=== PATIENT | female | born 1970 | race Asian ===

== ENCOUNTER → 2017-05-13 | Outpatient (CLI) | payer OTHER | LOC: CIMAGING 08:05 | PROVIDERS: ATTEND Family Medicine | DX: Z12.31 Encounter for screening mammogram for malignant neoplasm of breast (principal) | CPT/HCPCS: G0202 ==

== ENCOUNTER 2017-10-25 23:09 | Emergency (ER) | payer OTHER ==
[2017-10-25 23:28] VITALS: BP 130/84
--- NOTE | 2017-10-25 23:28 | EDPHY ---
H & P Time Seen by Provider: 10/25/17 23:26 HPI/ROS: CHIEF COMPLAINT: Right posterior shoulder discomfort HISTORY OF PRESENT ILLNESS: Right posterior shoulder discomfort beginning approximately 11:00 a.m. Initially seen to be at the posterior aspect of the right upper arm, however in a 30 min or so it moved up to the vicinity where it is now, overlying the posterior axillary fold. She had been up for most the morning doing normal activities such as bathroom care, breakfast. At the time of the onset she was sitting propped up in bed, holding a crossword puzzle in her left hand performing the crossword puzzle in her dominant right hand - that is when she noted discomfort. It was bothersome through the most the afternoon and into the evening when he became notably worse around 8:00 p.m. At which time she took Advil 400 mg. It really did not help much. Thus she came in for evaluation. No cough or fever or chills or nausea vomiting or diaphoresis. P: Worse with sitting up or standing, located in the vicinity of the right posterior axillary fold Q: Achiness R: No radiation S: Moderate, not better with Ativan. T: Persistent since 6:11 a.m., worse since 8:00 p.m. No risk factors for pulmonary embolus or DVT. Perc Score 0 [place] Prescription Drug Monitoring Program checked: not in there REVIEW OF SYSTEMS: Constitutional: No fever, no chills. Eyes: No discharge No diplopia ENT: No sore throat. Cardiovascular: No chest pain, no palpitations. Respiratory: No cough, shortness of breath, or wheezing. Gastrointestinal: No nausea vomiting or diarrhea. No abdominal pain. Genitourinary: No hematuria or frequency. Musculoskeletal: No back pain. Skin: No rashes. No diaphoresis or nausea vomiting Neurological: No headache. 10 point ROS otherwise negative Source: Patient - Personal History LMP (Females 10-55): Now Tetanus Vaccine Date: WITHIN 10 YRS - Medical/Surgical History Hx Asthma: Yes Hx Chronic Respiratory Disease: No Hx Diabetes: No Hx Cardiac Disease: No Hx Renal Disease: No Hx Cirrhosis: No Hx Alcoholism: No Hx HIV/AIDS: No Hx Splenectomy or Spleen Trauma: No Other PMH: HTN, HIGH CHOLESTEROL,WILLIS PARKINSON/SEIZURES. RESPIRATORY FAILURE FROM H1N1/PNEUMONIA- HOSPITALIZED X 3 MONTHS. Surgical- None - Family History Significant Family History: No pertinent family hx - Social History Smoking Status: Never smoked Alcohol Use: None Drug Use: None - Physical Exam Exam: General: WD, WN, nontoxic, without diaphoresis. No respiratory distress. Denies pleuritic pain, even with deep breath taken as directed. Baseline oxygen is place as usual. HEENT: No odor of alcohol Neck: No Torticollis. Trachea is in ML. No rashes. No muscle spasm. No bony tenderness. ROM: Normal Normal sensation to the upper extremities Lungs: Clear, no dullness. No rales rhonchi wheezes. Shoulder: negative empty can test. No crepitus with ROM. Pain reproduced by me with resistance testing to internal rotation, less so with Triceps and Biceps. Passive extension and external rotation of the shoulder reproduces the pain. Back: Tender overlying the length of the right shoulder, in the vicinity of the posterior axillary fold along the course of the ltissimus dorsi, reproducing the pain. No rib tenderness. Skin: Intact without rash. Capillary refill intact. Constitutional: Initial Vital Signs Temperature (C) 37.1 C 10/25/17 23:24 Heart Rate 75 10/25/17 23:24 Respiratory Rate 18 10/25/17 23:24 Blood Pressure 130/84 H 10/25/17 23:24 O2 Sat (%) 95 10/25/17 23:24 O2 Delivery Mode Room Air Allergies/Adverse Reactions: peanut Allergy (Intermediate, Verified 10/25/17 23:23) Vomiting levofloxacin Allergy (Verified 10/25/17 23:23) sulfamethoxazole [From Bactrim] Allergy (Verified 10/25/17 23:23) trimethoprim [From Bactrim] Allergy (Verified 10/25/17 23:23) Home Medications: Medication Instructions Recorded PARoxetine HCL [Paxil 20mg (RX)] 20 mg PO DAILY 07/18/13 Metoprolol Tartrate [Lopressor] 50 mg PO BID 08/13/13 Gabapentin 10/25/17 Keppra 10/25/17 LORazepam [Ativan] 1 tab PO Q8 PRN #10 tablet 10/25/17 Lamictal 10/25/17 Medical Decision Making ED Course/Re-evaluation: Diagnostic considerations include, but are not limited to, the following: Shoulder strain, rotator cuff injury, pneumothorax, pleurisy, pulmonary embolus , shingles, trapezius strain. - Data Points Medications Given: Discontinued Medications Lorazepam (Ativan 1 Mg Prepack#4) 0.5 btl CHRIS GOMEZ ONE Stop: 10/25/17 23:55 Last Admin: 10/26/17 00:02 Dose: 1 btl Departure - Departure Disposition: Home, Routine, Self-Care Clinical Impression: Strain of muscle at thorax level Condition: Serious Instructions: Lorazepam (By mouth), Thoracic Back Strain (ED) Additional Instructions: Tylenol and Advil works well together in combination: 1300 mg Extended Release Tylenol and 600 mg Advil every 8 hours. 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
[2017-10-25] MEDS ORDERED: LORAZEPAM 1 MG PREPACK#4 BTL TAKEHOME ONE (23:54)
== END 2017-10-26 00:14 | disposition home or self-care (01) ==
LOC: CED 23:09
DX: S29.012A Strain of muscle and tendon of back wall of thorax, initial encounter (principal); I10 Essential (primary) hypertension; J45.909 Unspecified asthma, uncomplicated; Z91.010 Allergy to peanuts; X58.XXXA Exposure to other specified factors, initial encounter

== ENCOUNTER → 2017-10-29 | Outpatient (CLI) | payer OTHER | LOC: BMCIMAGING 14:39 | PROVIDERS: ATTEND Internal Medicine | DX: M41.84 Other forms of scoliosis, thoracic region (principal); M54.12 Radiculopathy, cervical region; R07.9 Chest pain, unspecified ==

== ENCOUNTER → 2017-11-19 | Outpatient (CLI) | payer OTHER | LOC: FIMAGING 07:39 | PROVIDERS: ATTEND Physician Assistant Medical | DX: M50.321 Other cervical disc degeneration at C4-C5 level (principal); M50.322 Other cervical disc degeneration at C5-C6 level; M50.323 Other cervical disc degeneration at C6-C7 level; M50.33 Other cervical disc degeneration, cervicothoracic region; M48.02 Spinal stenosis, cervical region; M99.71 Connective tissue and disc stenosis of intervertebral foramina of cervical region ==

== ENCOUNTER → 2018-08-02 | Outpatient (CLI) | payer OTHER | LOC: CIMAGING 07:55 | PROVIDERS: ATTEND Internal Medicine | DX: Z12.31 Encounter for screening mammogram for malignant neoplasm of breast (principal); Z80.3 Family history of malignant neoplasm of breast ==

== ENCOUNTER → 2018-08-15 | Outpatient (CLI) | payer OTHER | LOC: FIMAGING 08:35 | PROVIDERS: ATTEND Neurological Surgery | DX: M50.321 Other cervical disc degeneration at C4-C5 level (principal); M53.82 Other specified dorsopathies, cervical region ==

== ENCOUNTER 2018-08-26 08:15 | Inpatient (IN) | payer OTHER ==
[2018-08-26] MEDS ORDERED: SURGIFLO MATRIX KIT WITH THROMBIN 8 ML TP ONE (09:07)
[2018-08-26] MEDS ORDERED: THROMBIN (BOVINE) 20,000 UNIT VIAL TP ONE (09:07)
[2018-08-26] MEDS ORDERED: CHLORHEXIDINE GLUC HIBICLENS 118 ML BTL TP ONE ×2 (09:08)
[2018-08-26] MEDS ORDERED: BACITRACIN 50,000 UNITS/10 ML SYR IRR ONE (09:08)
[2018-08-26] MEDS ORDERED: PROPOFOL/EMULSION 500 MG/50 ML BOTTLE IV ONE (09:32)
[2018-08-26] MEDS ORDERED: ceFAZolin 2 GM/DEXTROSE 100 ML IV ONE (09:38)
[2018-08-26] MEDS ORDERED: LR 1,000 ML IV ONE (09:38)
[2018-08-26] MEDS ORDERED: ACETAMINOPHEN 500 MG TAB PO ONE (09:38)
[2018-08-26] MEDS ORDERED: GABAPENTIN 300 MG CAP PO ONE (09:38)
--- NOTE | 2018-08-26 09:46 | PDHPUP ---
History & Physical Update H&P update statement: This history and physical update is based on an assessment of the patient which was completed after admission or registration (within 24 hours), but prior to the surgery/procedure. H&P update: H&P reviewed & patient examined, no change in patient's condition since H&P completed (Consents signed and site marked. All questions answered.)
[2018-08-26] MEDS ORDERED: fentaNYL 100 MCG/2 ML INJ ONE ×3 (10:12→14:12)
[2018-08-26] MEDS ORDERED: MIDAZOLAM 2 MG/2 ML VIAL ONE (10:12)
[2018-08-26] MEDS ORDERED: LR 500 ML IV PRN (10:54)
[2018-08-26] MEDS ORDERED: ONDANSETRON 4 MG/2 ML VIAL IVP PRN ×2 (10:54→13:41)
[2018-08-26] MEDS ORDERED: DEXAMETHASONE 4 MG/ML VIAL IVP PRN (10:54)
[2018-08-26] MEDS ORDERED: ALBUTEROL 3 ML DEYVIAL IH PRN (10:54)
[2018-08-26] MEDS ORDERED: NS 500 ML IV PRN (10:54)
[2018-08-26] MEDS ORDERED: NALOXONE HCL 0.4 MG/ML INJ IVP PRN (10:54)
[2018-08-26] MEDS ORDERED: DIAZEPAM 5 MG/ML 1 ML SYR IVP PRN (10:54)
--- NOTE | 2018-08-26 10:54 | PDANEPAE ---
ANE Past Medical History - Cardiovascular History Hx Hypertension: Yes Hx Arrhythmias: Yes Hx Chest Pain: No Hx Coronary Artery / Peripheral Vascular Disease: No Hx CHF / Valvular Disease: No Hx Palpitations: No Cardiovascular History Comment: hajcj-[id number]-vxnrh. hyperlipidemia. followed by [facility] - Pulmonary History Hx Asthma/Reactive Airway Disease: No Hx Recent Upper Respiratory Infection: No Hx Oxygen in Use at Home: Yes O2 in Use at Home (L/minute): 2-4L cont Hx Sleep Apnea: No Sleep Apnea Screening Result - Last Documented: Negative Pulmonary History Comment: hx of ARDS in 2013 with trach. 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 last seizure was a couple months ago per patient report - Endocrine History Hx Diabetes: No - Renal History Hx Renal Disorders: No - Liver History Hx Hepatic Disorders: No - Neurological & Psychiatric Hx Hx Neurological and Psychiatric Disorders: Yes Neurological / Psychiatric History Comment: slight depression - Cancer History Hx Cancer: No - Congenital Disorder History Hx Congenital Disorders: No - GI History Hx Gastrointestinal Disorders: No - Other Health History Other Health History: wears glasses - Chronic Pain History Chronic Pain: No - Surgical History Prior Surgeries: tracheostomy 2013. carpal tunnel release in 1993 ANE Review of Systems Review of Systems: - Exercise capacity METS (RN): 3 METS ANE Patient History - Allergies Allergies/Adverse Reactions: cat dander Allergy (Verified 08/19/18 11:49) levofloxacin Allergy (Verified 08/19/18 11:49) Vomiting peanut Allergy (Verified 08/19/18 11:49) Vomiting sulfamethoxazole [From Bactrim] Allergy (Verified 08/19/18 11:49) Rash trimethoprim [From Bactrim] Allergy (Verified 08/19/18 11:49) Rash - Home Medications Home Medications: Gabapentin [Neurontin 300 MG (*)] 900 mg PO HS 10/25/17 [Last Taken 1 Day Ago ~ 08/25/18] lamoTRIgine [LamICTAL] 50 mg PO DAILY 10/25/17 [Last Taken 08/26/18 05:00] levETIRAcetam [Keppra 500 mg (*)] 750 mg PO DAILY 10/25/17 [Last Taken 08/26/18 05:00] Cetirizine [ZyrTEC 10 mg (*)] 10 mg PO DAILY PRN 08/17/18 [Last Taken 1 Day Ago ~08/25/18] Cholecalciferol Vit D3 [Vitamin D3 (*)] 50,000 unit PO MOFR 08/17/18 [Last Taken 1 Week Ago ~08/19/18] Fluticasone Nasal [Flonase Nasal Baxter (RX)] 2 sprays NASAL DAILY 08/17/18 [ Last Taken 1 Day Ago ~08/25/18] Ibuprofen [Motrin (*)] 200 mg PO DAILY PRN 08/17/18 [Last Taken 1 Week Ago ~] Levalbuterol Inhaler [Xopenex Hfa Inhaler (*)] 1 puffs IH TID PRN 08/17/18 [ Last Taken 1 Month Ago ~07/26/18] Metoprolol Tartrate [Lopressor 25 mg (*)] 12.5 mg PO BID 08/17/18 [Last Taken 05:00] [place]-3 Ethyl Est-Lovaza [Lovaza 1 gm (*)] 1 gm PO BID 08/17/18 [Last Taken 1 Week Ago ~08/19/18] PARoxetine HCL [Paxil] 40 mg PO DAILY 08/17/18 [Last Taken 08/26/18 05:00] Pseudoephedrine HCl [Sudafed] 30 mg PO DAILY PRN 08/17/18 [Last Taken 1 Day Ago ~08/25/18] Simvastatin [Zocor] 40 mg PO HS 08/17/18 [Last Taken 1 Day Ago ~08/25/18] Vitamin B Complex [Vitamin B Complex (OTC)] 1 each PO DAILY 08/17/18 [Last Taken 1 Week Ago ~08/19/18] lamoTRIgine [LamICTAL] 150 mg PO HS 08/17/18 [Last Taken 1 Day Ago ~08/25/18] levETIRAcetam [Keppra 500 mg (*)] 1,500 mg PO HS 08/17/18 [Last Taken 1 Day Ago ~08/25/18] - NPO status NPO Since - Liquids (Date): 08/26/18 NPO Since - Liquids (Time): 05:00 NPO Since - Solids (Date): 08/26/18 NPO Since - Solids (Time): 00:00 - Smoking Hx Smoking Status: Never smoked - Family Anes Hx Family Hx Anesthesia Complications: none ANE Labs/Vital Signs - Vital Signs Blood Pressure: 117/80 Heart Rate: 70 Respiratory Rate: 18 O2 Sat (%): 98 Height: 157.48 cm Weight: 61.235 kg ANE Physical Exam - Airway Neck exam: decreased ROM Mallampati Score: Class 2 Mouth exam: normal dental/mouth exam - Pulmonary Pulmonary: no respiratory distress, no rales or rhonchi, clear to auscultation - Cardiovascular Cardiovascular: regular rate and rhythym, no murmur, rub, or gallop - ASA Status ASA Status: III ANE Anesthesia Plan Anesthesia Plan: general endotracheal anesthesia Lines/Monitors: arterial line, LUIS Specialized Airway: video laryngoscope
[2018-08-26] MEDS ORDERED: PROPOFOL 200 MG/20 ML VIAL ONE ×2 (10:58→11:26)
[2018-08-26] MEDS ORDERED: ONDANSETRON 4 MG/2 ML VIAL ONE (10:59)
[2018-08-26] MEDS ORDERED: RANITIDINE 50 MG/2 ML VIAL ONE (10:59)
[2018-08-26] MEDS ORDERED: LIDOCAINE 2% 5 ML SDV ONE (10:59)
[2018-08-26] MEDS ORDERED: ROCURONIUM 50 MG/5 ML VIAL ONE (10:59)
[2018-08-26] MEDS ORDERED: KETOROLAC 30 MG/1 ML SDV ONE (10:59)
[2018-08-26] MEDS ORDERED: DEXAMETHASONE 4 MG/ML VIAL ONE (10:59)
[2018-08-26] MEDS ORDERED: MAGNESIUM SULFATE 1 GM/2 ML VIAL ONE (11:14)
[2018-08-26] MEDS ORDERED: SUGAMMADEX SODIUM 200 MG/2 ML VIAL IVP ONE (12:50)
[2018-08-26] MEDS ORDERED: diphenhydrAMINE 25 MG CAP PO PRN (13:41)
[2018-08-26] MEDS ORDERED: POLYETHYLENE GLYCOL 3350 17 GM PKT PO PRN (13:41)
[2018-08-26] MEDS ORDERED: MAGNESIUM HYDROXIDE 30 ML UDCUP PO PRN (13:41)
[2018-08-26] MEDS ORDERED: BISACODYL 10 MG SUPP PR PRN (13:41)
[2018-08-26] MEDS ORDERED: ONDANSETRON DISINTEGRATING 4 MG TAB PO PRN (13:41)
[2018-08-26] MEDS ORDERED: LACTULOSE 20 GM/30 ML UDCUP PO PRN (13:41)
[2018-08-26] MEDS ORDERED: LEVALBUTEROL INHALER 200 PUFFS/15 GM MDI IH PRN (13:45)
[2018-08-26] MEDS ORDERED: CETIRIZINE 10 MG TAB PO PRN (13:45)
[2018-08-26] MEDS ORDERED: PSEUDOEPHEDRINE HCL 30 MG TAB PO PRN (13:45)
[2018-08-26] MEDS ORDERED: NS 1,000 ML IV SCH (13:45)
--- NOTE | 2018-08-26 13:53 | POSTOPPROG ---
Post Op Note Date of Operation: 08/26/18 Surgeon: Malcolm Duarte Diesel Pile Driver Operator: MOOK Sainz PAC Anesthesia: GET(General Endotracheal) Pre-op Diagnosis: Cervical stenosis Post-op Diagnosis: Cervical stenosis Indication: Cervical stenosis Procedure: ACDF C4/5, C5/6, C6/7 Inf/Abcess present in the surg proc area at time of surgery?: No EBL: Minimal PA Addendum - Addendum .: O: Posterior neck pain S: NAD A&Ox3 MAEx4 5/5 and equal in BUE and BLE. Neck soft supple. Dressing c/d/ i A/P 48y/o female s/p ACDF C4-7 -Advance diet as tolerated -Optimize pain management -Post op xrays pending -PT/OT -DVT prophx: TEDs, SCDs, lovenox okay POD3 -Please notify NS with any change in neuro/motor exam
--- NOTE | 2018-08-26 13:54 | POSTANESTH ---
Post Anesthetic Evaluation Cardiovascular Status: Normal, Stable, Similar to Pre-Op Cond Respiratory Status: Normal, Stable, Similar to Pre-op Cond. Level of Consciousness/Mental Status: Moderately Sleepy Pain Control: Adequate, Prn Tx Ordered Nausea/Vomiting Control: Adequate, Prn Tx Ordered Complications Possibly Related to Anesthesia: None Noted
--- NOTE | 2018-08-26 14:14 | PDMN ---
Medical Necessity Medical necessity: [facility] [place] S320 cervical fusion anterior: INPT for multilevel- 3 or more levels - OP: ACDF C4/5,C5/6,C6/7
[2018-08-26] MEDS: fentaNYL 100 MCG/2 ML INJ IVP PRN ×3 (14:17→15:45)
--- NOTE | 2018-08-26 14:26 | GOP ---
[f rep st] OPERATIVE REPORT DATE OF OPERATION: 08/26/2018 SURGEON: Malcolm Duarte MD LINE HAUL DRIVER: SAMANTHA Toney ANESTHESIA: General. PREOPERATIVE DIAGNOSIS: 1. C4 through C7 cervical stenosis with spondylosis. 2. Cervicalgia, radiculopathy, and myelopathy. 3. Treatment refractory to nonoperative intervention. POSTOPERATIVE DIAGNOSIS: 1. C4 through C7 cervical stenosis with spondylosis. 2. Cervicalgia, radiculopathy, and myelopathy. 3. Treatment refractory to nonoperative intervention. PROCEDURE PERFORMED: 1. Anterior arthrodesis with approach to C4, C5, C6, C7. 2. C4- C5 diskectomy with bilateral foraminotomies, osteophytectomies, and interbody fusion using a 6 x 14 x 11 mm titanium coated PEEK cage filled with morselized autograft and allograft. 3. C5-C6 diskectomy with bilateral foraminotomies, osteophytectomies, and interbody fusion using a 6 x 14 x 11 mm titanium coated PEEK cage filled with morselized autograft and allograft. 4. C6-C7 diskectomy with bilateral foraminotomies, osteophytectomies, and interbody fusion using a 6 x 14 x 11 mm titanium coated PEEK cage filled with morselized autograft and allograft. 5. Anterior cervical fusion C4, C5, C6, and C7 with a 52.5 mm [employer] [place] translational plate. 6. Use of intraoperative fluoroscopy, less than 1 hour physician time. 7. Use of neuromonitoring. 8. Use of operating microscope. FINDINGS: the dura was scarred to the PLL from inflammatory tissue SPECIMENS: None. ESTIMATED BLOOD LOSS: 20 mL. INDICATIONS: The patient is a very pleasant, 48-year-old woman who presented to my office with worsening arm weakness, neck pain and radiculopathy. Imaging demonstrates severe spinal stenosis with spondylosis C4 through C7. After discussion of the risks, benefits, and alternatives, and after failing nonoperative interventions, we decided to proceed forth with surgery as described above. DESCRIPTION OF PROCEDURE: Patient was brought to the operating theater and underwent general endotracheal anesthesia without complications. She had Venodynes, RAPHAEL hose, and the appropriate lines placed by Anesthesia. Her head was then placed supine on the operating table in slight extension. All bony processes were inspected and padded. Using lateral fluoroscopy and spinal needle, we picked our entry point to the C4 through C7 levels. This was marked as a transverse incision on the right side of her neck. This area was then prepped and draped in the usual sterile surgical fashion. A time-out was completed per protocol and the patient received antibiotics within 1 hour of incision. The incision was taken down with the scalpel blade and using monopolar, taken down through subcutaneous tissues to the level of the platysma. The platysma was over-mined in the cranial and caudal directions. A Weitlaner was placed to maintain our exposure. We opened the fibers of the platysma cranially and caudally. Using both blunt and sharp dissection, we then traveled on a plane medial to the carotid sheath, lateral to the esophagus and trachea to reach the prevertebral fascia. We placed a bayonetted needle into the disk space of C4- C5 and confirmed the level using lateral fluoroscopy. We elevated the longus coli muscle from the anterior vertebral bodies of C4, C5, C6, and C7. The microscope was brought into field to assist with microscopic dissection and maintain illumination and magnification. We placed a [place] pin into the vertebral body of C4 and C5, placed the C4-C5 into mild distraction. We completed a C4-C5 diskectomy with bilateral foraminotomies and osteophytectomies. The dura was noted to be very inflamed. We prepared the cartilaginous endplates and measured the interbody space. We then placed a 6 x 14 x 11 mm titanium coated PEEK cage filled the morselized autograft and allograft into the C4-C5 disk space. Removed the [place] pin from C4, and placed it into C6, and placed C5-C6 into mild distraction. We completed a C5- C6 diskectomy with bilateral foraminotomies and osteophytectomies. We prepared the cartilaginous endplates and measured interbody space. We placed a 6 x 14 x 11 mm titanium coated PEEK cage filled with morselized autograft and allograft in the C5-C6 disk space. We removed the [place] pin from C5, and placed it into C7 and placed C6-C7 into mild distraction. We completed a C6-C7 diskectomy with bilateral foraminotomies and osteophytectomies. We prepared the cartilaginous endplates and measured interbody space. We placed a 6 x 14 x 11 mm titanium coated PEEK cage filled with morselized autograft and allograft into the C6-7 disk space. We removed the [place] pins, drilled down anterior osteophytes, and secured a 52.5 mm [employer] [place] Translational plate onto the vertebral bodies of C4, C5, C6, and C7. AP and lateral x-rays demonstrated good placement of the hardware. The wounds were copiously irrigated with bacitracin irrigation and hemostasis obtained with the bipolar. The wound was then closed in multiple layers, including Vicryl sutures for the deep layers and Dermabond for the skin. Patient's wounds were dressed sterilely. She was then awakened extubated taken to the recovery room in stable condition. There were no complications and no noted changes on neuromonitoring throughout the procedure.. COMPLICATION: None. /[id number]/MODL MTDD
[2018-08-26] MEDS ORDERED: DIAZEPAM 5 MG/ML 1 ML SYR ONE (14:51)
[2018-08-26] MEDS: ACETAMINOPHEN 500 MG TAB PO SCH ×2 (16:47→22:12)
[2018-08-26] MEDS: ceFAZolin 2 GM/DEXTROSE 100 ML IV SCH (18:29)
[2018-08-26] MEDS: DEXAMETHASONE 4 MG/ML VIAL IVP SCH (18:29)
[2018-08-26] MEDS: FAMOTIDINE 20 MG TAB PO SCH (20:48)
[2018-08-26] MEDS: METOPROLOL TARTRATE 25 MG TAB PO SCH (20:50)
[2018-08-26] MEDS: METHOCARBAMOL 750 MG TAB PO PRN (20:53)
[2018-08-26] MEDS: SENNOSIDES/DOCUSATE SODIUM TAB PO SCH (20:53)
[2018-08-26] MEDS: oxyCODONE IR 5 MG TAB PO PRN (20:54)
[2018-08-26] MEDS ORDERED: lamoTRIgine 25 MG TAB PO SCH (21:00)
[2018-08-26] MEDS ORDERED: ATORVASTATIN CALCIUM 20 MG TAB PO SCH (21:00)
[2018-08-26] MEDS ORDERED: GABAPENTIN 300 MG CAP PO SCH (21:00)
[2018-08-26] MEDS ORDERED: levETIRAcetam 500 MG TAB PO SCH (21:00)
[2018-08-26] MEDS ORDERED: lamoTRIgine 100 MG TAB PO SCH (21:15)
[2018-08-27] MEDS: DEXAMETHASONE 4 MG/ML VIAL IVP SCH (01:01)
[2018-08-27] MEDS: oxyCODONE IR 5 MG TAB PO PRN (01:03)
[2018-08-27] MEDS: ceFAZolin 2 GM/DEXTROSE 100 ML IV SCH (01:04)
[2018-08-27] MEDS: ACETAMINOPHEN 500 MG TAB PO SCH ×2 (05:09→15:07)
[2018-08-27] MEDS: METHOCARBAMOL 750 MG TAB PO PRN ×2 (05:27→12:45)
[2018-08-27] MEDS ORDERED: lamoTRIgine 25 MG TAB PO SCH (09:00)
[2018-08-27] MEDS ORDERED: levETIRAcetam 500 MG TAB PO SCH (09:00)
[2018-08-27] MEDS ORDERED: PARoxetine HCL 20 MG TAB PO SCH (09:00)
--- NOTE | 2018-08-27 09:12 | NEUSURGPN ---
Assessment/Plan: A/P 48y/o female s/p ACDF C4-7 POD1 -Optimize pain management -Post op xrays pending -PT/OT -DVT prophx: TEDs, SCDs, lovenox okay POD3 -Dispo planning once xrays complete -Please notify NS with any change in neuro/motor exam Subjective: Scratchy throat but tolerating PPO okay. Objective: NAD A&Ox3 MAEx4 5/5 and equal in BUE and BLE. Incision c/d/i - Physician Discussed Patient with : [facility] Physical Exam - Vitals, I&O, Labs I and O 08/26/18 08/27/18 08/28/18 05:59 05:59 05:59 Intake Total 2190 Output Total 1670 Balance 520 Weight 61.235 kg Intake: Oral (ml) 1190 IV Intake (ml) 1000 Output: Urine (ml) 1650 Toilet 1650 Estimated Blood Loss (ml) 20 Other: Intake Quantity Yes Sufficient Number of Voids Toilet 1 Vital Signs Temp Pulse Resp BP Pulse Ox 36.8 C 86 14 112/69 96 08/27/18 08:00 08/27/18 08:00 08/27/18 08:00 08/27/18 08:00 08/27/18 08:00 ICD10 Worksheet Patient Problems: Problems Problem Status Onset Flu Acute Hypertension Acute Pneumonia Acute Respiratory failure Acute Seizure Acute Tachycardia Acute WPW (Ncxro-Ddllgubvl-Nudsr syndrome) Acute
[2018-08-27] MEDS: SENNOSIDES/DOCUSATE SODIUM TAB PO SCH (10:52)
[2018-08-27] MEDS: METOPROLOL TARTRATE 25 MG TAB PO SCH (10:53)
[2018-08-27] MEDS: FAMOTIDINE 20 MG TAB PO SCH (10:55)
[2018-08-27 12:56] VITALS: BP 126/86
--- NOTE | 2018-08-27 14:46 | ASMTCMCOM ---
CM Note CM Note Notes: Pt had planned surgery for cervical stenosis. PT rec home/outpatient. Pt medically stable for d/c with husb assist. Date Signed: 08/27/2018 02:46 PM Electronically Signed By:CANDICE Springer
[2018-08-29] MEDS ORDERED: ENOXAPARIN 40 MG/0.4 ML SYR SC SCH (09:00)
== END 2018-08-27 15:06 | disposition home or self-care (01) | DRG 472 ==
LOC: F3N 08:27 → OBSVTOIN 14:05 → F3N 16:15
PROVIDERS: ADMIT Neurological Surgery; ATTEND Neurological Surgery
DX: M47.12 Other spondylosis with myelopathy, cervical region (principal); M47.22 Other spondylosis with radiculopathy, cervical region; M48.02 Spinal stenosis, cervical region; J84.9 Interstitial pulmonary disease, unspecified; I10 Essential (primary) hypertension; I45.6 Pre-excitation syndrome; E78.5 Hyperlipidemia, unspecified; G40.909 Epilepsy, unspecified, not intractable, without status epilepticus; Z99.81 Dependence on supplemental oxygen
CPT/HCPCS: 80175-90; 80177-90; 92610-GN; 97161-GP; 97165-GO; C1713; J0690; J1100; J1885; J2250; J2405; J2704; J2780; J3010; J3360; J3475

== ENCOUNTER → 2018-09-28 | Outpatient (CLI) | payer OTHER | LOC: CIMAGING 09:25 | PROVIDERS: ATTEND Physician Assistant | DX: M47.12 Other spondylosis with myelopathy, cervical region (principal); M47.22 Other spondylosis with radiculopathy, cervical region; M48.02 Spinal stenosis, cervical region | CPT/HCPCS: 72040-PO ==

== ENCOUNTER → 2018-11-23 | Outpatient (CLI) | payer OTHER | LOC: CIMAGING 11:55 | PROVIDERS: ATTEND Neurological Surgery | DX: Z09 Encounter for follow-up examination after completed treatment for conditions other than malignant neoplasm (principal); Z98.1 Arthrodesis status | CPT/HCPCS: 72040-PO ==